=== PATIENT | male | born 1990 | race African-American/Black ===

== ENCOUNTER 2019-06-29 04:21 | Emergency (ER) | payer BC, OTHER ==
[~2019-06-29] VITALS: Ht 180.3 cm; Wt 77.1 kg
[2019-06-29] MEDS ORDERED: NORFLEX100 MG PO (05:33)
[2019-06-29] MEDS ORDERED: NAPROSYN500 MG PO (05:33)
[2019-06-29 05:35] VITALS: BP 119/66
== END 2019-06-29 05:42 | disposition home or self-care (01) ==
LOC: ER 04:21
DX: R07.89 Other chest pain (principal); R07.81 Pleurodynia; R05 Cough; F17.210 Nicotine dependence, cigarettes, uncomplicated